=== PATIENT | female | born 1970 | race Caucasian/White ===

== ENCOUNTER → 2016-12-06 | Outpatient (REF) | payer MEDICARE, MEDICAID ==
[~2016-12-06] MED LIST: ACET50TA PO; CIPR500T4; COLA100C2; CYMB60CA3 PO; DARV100T; DILA2TAB; MOTR200T4; TAMS0.4C PO; VYVA30CA5 PO; XANA0.5T PO
== END ==
LOC: M LAB REF 08:28
PROVIDERS: ATTEND Physician Assistant
DX: N32.81 Overactive bladder (principal); Z79.899 Other long term (current) drug therapy

== ENCOUNTER → 2017-01-03 | Outpatient (REF) | payer MEDICARE, MEDICAID | LOC: M LAB REF 16:31 | PROVIDERS: ATTEND Physician Assistant | DX: R30.0 Dysuria (principal) ==

== ENCOUNTER → 2017-03-22 | Outpatient (REF) | payer MEDICARE, MEDICAID ==
[2017-03-22 14:48] LABS: ALBUMIN 4.5 GM/DL (3.2-5.2); ALBUMIN/GLOBULIN RATIO 1.36 (1.00-1.93); ALKALINE PHOSPHATASE 123 U/L (45-117); ALT/SGPT 26 U/L (12-78); ANION GAP 6 MEQ/L (8-16); AST/SGOT 18 U/L (15-37); BILIRUBIN,TOTAL 0.4 MG/DL (0.2-1.0); BLOOD UREA NITROGEN 20 MG/DL (7-18); CALCIUM LEVEL 9.8 MG/DL (8.5-10.1); CARBON DIOXIDE LEVEL 30 MEQ/L (21-32); CHLORIDE LEVEL 106 MEQ/L (98-107); CREATININE FOR GFR 1.14 MG/DL (0.55-1.02); GLOMERULAR FILTRATION RATE 54.4 (>58); GLUCOSE, FASTING 111 MG/DL (70-105); POTASSIUM SERUM 3.9 MEQ/L (3.5-5.1); SODIUM LEVEL 142 MEQ/L (136-145); TOTAL PROTEIN 7.8 GM/DL (6.4-8.2)
[2017-03-27 12:07] LABS: ALBUMIN % 61.8 % (55.8-66.1); GAMMA GLOBULIN % 11.5 % (11.1-18.8)
[2017-03-27 12:09] LABS: ALBUMIN 4.82 GM/DL (3.29-5.55)
[2017-03-28 00:10] LABS: ACETYLCHOLINE RCPTOR BINDING A < 0.03 nmol/L (0.00-0.24); STRIATIONAL ANTIBODIES Negative (Neg:<1:40)
== END ==
LOC: M LABNEURO 13:24
PROVIDERS: ATTEND Psychiatry & Neurology Neurology
DX: R51 Headache (principal); R42 Dizziness and giddiness; H53.8 Other visual disturbances; Z79.899 Other long term (current) drug therapy

== ENCOUNTER → 2017-06-29 | Outpatient (REF) | payer MEDICARE, MEDICAID ==
[2017-06-29 18:45] LABS: ALBUMIN 4.4 GM/DL (3.2-5.2); ALBUMIN/GLOBULIN RATIO 1.47 (1.00-1.93); ALKALINE PHOSPHATASE 98 U/L (45-117); ALT/SGPT 18 U/L (12-78); ANION GAP 5 MEQ/L (8-16); AST/SGOT 16 U/L (15-37); BILIRUBIN,TOTAL 0.5 MG/DL (0.2-1.0); BLOOD UREA NITROGEN 17 MG/DL (7-18); CARBON DIOXIDE LEVEL 28 MEQ/L (21-32); CHLORIDE LEVEL 105 MEQ/L (98-107); CREATININE FOR GFR 1.19 MG/DL (0.55-1.02); GLOMERULAR FILTRATION RATE 51.5 (>58); GLUCOSE, FASTING 105 MG/DL (70-105); SODIUM LEVEL 138 MEQ/L (136-145); TOTAL PROTEIN 7.4 GM/DL (6.4-8.2)
[2017-06-29 18:55] LABS: POTASSIUM SERUM 5.3 MEQ/L (3.5-5.1)
== END ==
LOC: M LABDRAW1 18:06
PROVIDERS: ATTEND Psychiatry & Neurology Neurology
DX: R51 Headache (principal); Z51.81 Encounter for therapeutic drug level monitoring

== ENCOUNTER 2017-12-04 07:28 | Emergency (ER) | payer MEDICARE, MEDICAID ==
[2017-12-04] MEDS: ACETAMINOPHEN 325 MG TAB PO (08:11)
[2017-12-04 08:27] LABS: BASO # 0.1 10^3/uL (0.0-0.2); BASO % 0.4 % (0.0-1.0); EOS # 0.5 10^3/uL (0.0-0.50); EOS % 3.9 % (0.0-3.0); HEMATOCRIT 45.3 % (36.0-47.0); HEMOGLOBIN 15.2 g/dl (12.0-16.0); IMMATURE GRANULOCYTE # 0.1 10^3/uL (0-0); IMMATURE GRANULOCYTE % 0.4 % (0-0); LYMPH # 2.3 10^3/uL (1.5-4.5); LYMPH % 17.6 % (24.0-44.0); MEAN CORPUSCULAR HGB CONC 33.6 g/dl (32.0-36.5); MEAN CORPUSCULAR VOLUME 89.5 fl (80.0-96.0); MONO # 0.7 10^3/uL (0.0-0.8); MONO % 5.2 % (0.0-5.0); NEUTROPHILS # 9.3 10^3/uL (1.8-7.7); NEUTROPHILS % 72.5 % (36.0-66.0); PLATELET COUNT, AUTOMATED 242 10^3/uL (150-450); RED BLOOD COUNT 5.06 10^6/uL (4.00-5.40); RED CELL DISTRIBUTION WIDTH 12.8 % (11.5-14.5); WHITE BLOOD COUNT 12.9 10^3/uL (4.0-10.0)
[2017-12-04 08:46] LABS: CONTROL LINE MONO RF C INT CTR LINE PRESENT; MONO REFLEX EBV COMP NEGATIVE (NEGATIVE)
[2017-12-04 08:53] LABS: ALBUMIN 4.1 GM/DL (3.2-5.2); ALBUMIN/GLOBULIN RATIO 1.28 (1.00-1.93); ALKALINE PHOSPHATASE 104 U/L (45-117); ALT/SGPT 18 U/L (12-78); ANION GAP 7 MEQ/L (8-16); AST/SGOT 15 U/L (7-37); BILIRUBIN,DIRECT 0.1 MG/DL (0.0-0.2); BILIRUBIN,TOTAL 0.4 MG/DL (0.2-1.0); BLOOD UREA NITROGEN 14 MG/DL (7-18); CARBON DIOXIDE LEVEL 25 MEQ/L (21-32); CHLORIDE LEVEL 108 MEQ/L (98-107); CREATININE FOR GFR 1.13 MG/DL (0.55-1.30); GLOMERULAR FILTRATION RATE 54.7 (>58); GLUCOSE, FASTING 99 MG/DL (70-100); POTASSIUM SERUM 4.1 MEQ/L (3.5-5.1); SODIUM LEVEL 140 MEQ/L (136-145); TOTAL PROTEIN 7.3 GM/DL (6.4-8.2)
[2017-12-04 09:01] LABS: INFLUENZA A AMPLIFICATION NEGATIVE (NEGATIVE); INFLUENZA B AMPLIFICATION NEGATIVE (NEGATIVE)
[2017-12-06 00:06] LABS: EBV AB TO NUCLEAR ANTIGEN >600.0 U/mL (0.0-17.9)
[2017-12-06 00:06] LABS: EBV VIRAL CAPSID AG IgM <36.0 U/mL (0.0-35.9)
== END 2017-12-04 09:22 | disposition home or self-care (01) ==
LOC: M ED 07:28
DX: J02.9 Acute pharyngitis, unspecified (principal); B34.9 Viral infection, unspecified; Z87.442 Personal history of urinary calculi; F17.210 Nicotine dependence, cigarettes, uncomplicated
CPT/HCPCS: 71046

== ENCOUNTER → 2017-12-06 | Outpatient (CLI) | payer MEDICARE, MEDICAID ==
[2017-12-06 17:29] LABS: BASO # 0.1 10^3/uL (0.0-0.2); BASO % 0.6 % (0.0-1.0); EOS # 0.4 10^3/uL (0.0-0.50); EOS % 4.2 % (0.0-3.0); HEMATOCRIT 46.7 % (36.0-47.0); HEMOGLOBIN 15.5 g/dl (12.0-16.0); IMMATURE GRANULOCYTE % 0.3 % (0-0); LYMPH # 2.8 10^3/uL (1.5-4.5); LYMPH % 30.4 % (24.0-44.0); MEAN CORPUSCULAR HEMOGLOBIN 29.9 pg (27.0-33.0); MEAN CORPUSCULAR HGB CONC 33.2 g/dl (32.0-36.5); MONO # 0.7 10^3/uL (0.0-0.8); MONO % 8.1 % (0.0-5.0); NEUTROPHILS # 5.1 10^3/uL (1.8-7.7); NEUTROPHILS % 56.4 % (36.0-66.0); PLATELET COUNT, AUTOMATED 253 10^3/uL (150-450); RED BLOOD COUNT 5.19 10^6/uL (4.00-5.40); WHITE BLOOD COUNT 9.1 10^3/uL (4.0-10.0)
== END ==
LOC: M WUC 15:08
DX: J06.9 Acute upper respiratory infection, unspecified (principal); R05 Cough
CPT/HCPCS: 85025

== ENCOUNTER → 2017-12-25 | Outpatient (REF) | payer MEDICARE, MEDICAID | LOC: M LAB REF 16:58 | DX: N39.0 Urinary tract infection, site not specified (principal) | CPT/HCPCS: 87088; 87186 ==

== ENCOUNTER → 2018-04-11 | Outpatient (CLI) | payer MEDICARE, MEDICAID | LOC: M RAD 12:09 | DX: N20.1 Calculus of ureter (principal) | CPT/HCPCS: 76775 ==

== ENCOUNTER → 2018-10-19 | Outpatient (CLI) | payer MEDICARE, MEDICAID ==
--- NOTE | 2018-10-19 15:07 | REP ---
LEFT RIBS: REASON: Left anterior rib pain status post trauma. COMPARISON: Chest, 12/04/2017. FINDINGS: Five views of the ribs show no acute fracture or destructive osseous lesion. The accompanying frontal view of the chest shows no cardiomegaly, infiltrates, effusions or pneumothoraces. IMPRESSION: Negative rib series. The accompanying frontal view of the chest is unchanged from the prior exam. Electronically Signed by Baltazar Narayanan DO 10/19/2018 03:11 P
--- NOTE | 2018-10-19 15:07 | REP ---
UNILATERAL HIPS: FINDINGS: The joint space is symmetric and relatively well maintained. There is no acute fracture or dislocation. Electronically Signed by Baltazar Narayanan DO 10/19/2018 03:12 P
== END ==
LOC: M WUC 14:11
PROVIDERS: ATTEND Physician Assistant
DX: S20.212A Contusion of left front wall of thorax, initial encounter (principal); S70.02XA Contusion of left hip, initial encounter; X58.XXXA Exposure to other specified factors, initial encounter; Y92.9 Unspecified place or not applicable

== ENCOUNTER → 2018-10-31 | Outpatient (CLI) | payer MEDICARE, MEDICAID | LOC: M LAB 08:54 | PROVIDERS: ATTEND Specialist | DX: N39.0 Urinary tract infection, site not specified (principal) ==

== ENCOUNTER → 2018-11-13 | Outpatient (REF) | payer MEDICARE, MEDICAID | LOC: M LAB REF 10:56 | DX: N39.0 Urinary tract infection, site not specified (principal) ==

== ENCOUNTER → 2019-02-21 | Outpatient (REF) | payer MEDICARE, MEDICAID ==
[~2019-02-21] MED LIST changes: -ACET50TA PO; +MAPA500T17 PO
== END ==
LOC: M LAB REF 11:47
PROVIDERS: ATTEND Physician Assistant
DX: J01.90 Acute sinusitis, unspecified (principal); R19.7 Diarrhea, unspecified

== ENCOUNTER 2019-03-05 11:06 | Inpatient (IN) | payer MEDICARE, MEDICAID ==
[~2019-03-05] VITALS: Ht 160 cm; Wt 64.2 kg
[2019-03-05] MEDS ORDERED: OXYB5TAB10 PO (11:17)
[2019-03-05 12:36] LABS: HEMATOCRIT 48.1 % (36.0-47.0); HEMOGLOBIN 16.3 g/dl (12.0-15.5); MEAN CORPUSCULAR HGB CONC 33.9 g/dl (32.0-36.5); MEAN CORPUSCULAR VOLUME 91.6 fl (80.0-96.0); PLATELET COUNT, AUTOMATED 280 10^3/uL (150-450); RED BLOOD COUNT 5.25 10^6/uL (4.00-5.40); WHITE BLOOD COUNT 11.8 10^3/uL (4.0-10.0)
[2019-03-05 13:11] LABS: AMPHETAMINES LEVEL URINE NEGATIVE (NEGATIVE); BARBITURATES URINE NEGATIVE (NEGATIVE); BENZODIAZEPINES URINE NEGATIVE (NEGATIVE); CANNABINOIDS URINE POSITIVE (NEGATIVE); COCAINE METABOLITE URINE NEGATIVE (NEGATIVE); METHADONE URINE NEGATIVE (NEGATIVE); OPIATES URINE NEGATIVE (NEGATIVE); PHENCYCLIDINE URINE NEGATIVE (NEGATIVE)
[2019-03-05 13:12] LABS: ALBUMIN 4.5 GM/DL (3.2-5.2); ALT/SGPT 23 U/L (12-78); BILIRUBIN,DIRECT 0.2 MG/DL (0.0-0.2); BILIRUBIN,TOTAL 0.8 MG/DL (0.2-1.0); BLOOD UREA NITROGEN 18 MG/DL (7-18); CALCIUM LEVEL 9.6 MG/DL (8.5-10.1); CARBON DIOXIDE LEVEL 27 MEQ/L (21-32); CHLORIDE LEVEL 107 MEQ/L (98-107); ETHYL ALCOHOL (ETHANOL) < 0.003 % (0.000-0.010); GLOMERULAR FILTRATION RATE 56.2 (>58); GLUCOSE, FASTING 96 MG/DL (70-100); POTASSIUM SERUM 4.1 MEQ/L (3.5-5.1); SALICYLATE LEVEL 4.9 MG/DL (5.0-30.0); SODIUM LEVEL 139 MEQ/L (136-145); TOTAL PROTEIN 8.1 GM/DL (6.4-8.2)
[2019-03-05 13:14] LABS: ACETAMINOPHEN LEVEL < 2.0 UG/ML (10.0-30.0)
[2019-03-05] MEDS ORDERED: ACETAMINOPHEN TAB 650MG DOSE (2X325MG) PO ONE (13:30)
[2019-03-05] MEDS ORDERED: MAALOX 30 ML SUSP *UDC PO PRN (15:45)
[2019-03-05] MEDS ORDERED: ACETAMINOPHEN TAB 650MG DOSE (2X325MG) PO PRN (15:45)
[2019-03-05] MEDS ORDERED: traZODone 50 MG TAB PO PRN (15:45)
[2019-03-05] MEDS ORDERED: MOM 30ML SUSPENSION UDC PO PRN (15:45)
[2019-03-05 16:26] VITALS: BP 139/103
[2019-03-05] MEDS ORDERED: MULT-40 PO (16:39)
[2019-03-05] MEDS ORDERED: VENTAER INH (16:39)
[2019-03-05] MEDS: hydrOXYzine 50 MG TAB PO PRN (20:43)
[2019-03-05] MEDS ORDERED: QUEtiapine FUMARATE 25 MG TAB PO SCH (21:00)
[2019-03-06] MEDS: hydrOXYzine 50 MG TAB PO PRN ×3 (06:16→20:27)
[2019-03-06 07:59] VITALS: BP 124/61
[2019-03-06 08:29] LABS: HEMATOCRIT 45.8 % (36.0-47.0); HEMOGLOBIN 15.6 g/dl (12.0-15.5); MEAN CORPUSCULAR HEMOGLOBIN 30.9 pg (27.0-33.0); MEAN CORPUSCULAR HGB CONC 34.1 g/dl (32.0-36.5); MEAN CORPUSCULAR VOLUME 90.7 fl (80.0-96.0); PLATELET COUNT, AUTOMATED 277 10^3/uL (150-450); RED BLOOD COUNT 5.05 10^6/uL (4.00-5.40); WHITE BLOOD COUNT 9.8 10^3/uL (4.0-10.0)
[2019-03-06 08:54] LABS: CALCIUM LEVEL 9.5 MG/DL (8.5-10.1); CHOLESTEROL RISK RATIO 4.482 (<5); CREATININE FOR GFR 1.14 MG/DL (0.55-1.30); GLOMERULAR FILTRATION RATE 53.9 (>58); MAGNESIUM LEVEL 2.2 MG/DL (1.8-2.4); POTASSIUM SERUM 4.5 MEQ/L (3.5-5.1); THYROID STIMULATING HORMONE 2.43 uIU/ML (0.358-3.740)
[2019-03-06] MEDS ORDERED: SERTRALINE HCL 50 MG TAB PO SCH (09:00)
[2019-03-06] MEDS: NICOTINE 21MG/24HR 1 EA TRANSDERMAL TD SCH (09:24)
--- NOTE | 2019-03-06 13:40 | HPEPDOC ---
General Date of Admission March 05, 2019 at 15:41 Attending Physician: LD ELI MD Chief Complaint The patient is a 48-year-old female admitted with a reason for visit of Depressive Disorder. Source: Patient, RN/MD Exam Limitations: No limitations Timing/Duration: Unsure Severity: Moderate History of Present Illness Patient is a 48 year old female, past medical history significant for depression, anxiety, vesicourethral reflux, hydronephrosis, pyelonephritis, admitted to the inpatient psychiatric unit on account of worsening depression, anger, suicidal ideation. Patient reports multiple home stressors in the past week, worsening in the last 2 nights prior to admission for which she decided to come to the emergency room. She said she tried to cope with smoking cigarettes, also reports not having any medications to help with psychiatric issues, and also reports her dog passing last week. Hospitalist team was consulted for evaluation and management of any underlying medical comorbidities. On evaluation, she complained of concern for urinary infection due to urethral reflux. She has been followed by a urologist in [place] for management of vesicourethral reflux. She usually needs to void every 2 hours for prevention of reflux and infection. She reports increasing difficulty keeping to the 2 hour regimen, especially at night when she needs to sleep. Otherwise, denies any chills, fever or dysuria Home Medications Scheduled Multivitamin (Multivitamins) 1 Each Tablet, 1 TAB PO DAILY for . , (Reported) Oxybutynin Chloride (Oxybutynin Chloride) 5 Mg Tablet, 10 MG PO DAILY, (Reported) Scheduled PRN Albuterol Sulfate (Ventolin Hfa) 18 Gm Hfa.aer.ad, 2 PUFF INH Q4-6HP PRN for wheezing, (Reported) Allergies Coded Allergies: No Known Allergies (Verified , 09/24/09) Past Medical History Medical History -Vesicourethral reflux -Right hydronephrosis -Right pyelonephritis -Overactive bladder -Nicotine dependence -Depression -Anxiety Surgical History -Urethral stent placement-right -Partial left nephrectomy -Bladder reconstruction -Tubal ligation -Hysterectomy A-FIB/CHADSVASC A-FIB History Current/History of A-Fib/PAF?: No Review of Systems Other systems A 10 point pertinent review of systems is completed and negative except as stated in the history of presenting illness Physical Examination Other physical findings General: NAD. Skin: Warm, dry, intact. Cardiovascular: Regular rate and rhythm, no MRG, no jugular venous distention, no edema. Respiratory:CTAB, no accessory muscle use noted. Abdomen: Bowel sounds +, no tenderness, no distention Musculoskeletal: No joint deformities, Neurologic: CN 2-12 grossly intact, alert and oriented 3 Psychiatric: anxious Vital Signs Vital Signs Date Time Temp Pulse Resp B/P (MAP) Pulse Ox O2 Delivery O2 Flow Rate FiO2 03/06/19 07:59 97.2 99 16 124/61 (82) 03/05/19 16:26 100 03/05/19 15:54 Room Air Laboratory Data Labs 24H Laboratory Tests 2 03/06/19 07:59: Nucleated Red Blood Cells % (auto) 0.0, Anion Gap 6L, Glomerular Filtration Rate 53.9L, Calcium Level 9.5, Magnesium Level 2.2, Triglycerides Level 95, LDL Cholesterol 176H, Total Cholesterol 251H, Non-HDL Cholesterol (LDL + VLDL) 195, Total HDL Cholesterol 56, Cholesterol/HDL Ratio 4.482, Thyroid Stimulating Hormone (TSH) 2.430 CBC/BMP Laboratory Tests 03/06/19 07:59 Red Blood Count 5.05, Mean Corpuscular Volume 90.7, Mean Corpuscular Hemoglobin 30.9, Mean Corpuscular Hemoglobin Concent 34.1, Red Cell Distribution Width 12.7 Assessment/Plan Right vesicourethral reflux disease Overactive bladder Nicotine dependence Anxiety disorder Depression Plan Patient reports she was on oxybutynin 10 mg daily Will restart oxybutynin Has been instructed to follow up with urology as outpatient for evaluation and continued management of vesicourethral reflux Management of other underlying psychiatric issues by primary team Plan / VTE VTE Prophylaxis Ordered?: No VTE Exclusion Pharmacological: At Low Risk for VTE DEVEN KELLY [employer]PORATE SPECIALIST March 06, 2019 13:40
[2019-03-06] MEDS ORDERED: OXYB10TA PO (13:49)
--- NOTE | 2019-03-06 14:36 | MHHPEPDOC ---
General Date Of Admission: March 05, 2019 Legal Status: 9.39 Chief Complaint "I'm depressed and having thoughts of suicide." History of Present Illness HISTORY OF THE PRESENT ILLNESS: Patient is a 48 -year-old , female, with no previous psychiatric history who was sent to ED after seen at [facility] for intake appt for endorsing depression and SI for the past month since she and her adult son got into an argument and he released several emotions he had toward her. Pt reported in the ED that she and her son's relationship is now strained and she feels like an awful mother. She stated in the ED that she had a breakdown the night prior ED visit in which she threw a dining room chair and remote and punched a window. She endorsed insomnia and decreased appetite in the ED and was upset and crying.. Psychiatric Review of Systems Depression (2 or more weeks): depressed mood, insomnia/hypersomnia (insomnia), feelings of excess/guilt (guild), feelings of worthlesness, difficulty concentrating, appetite changes, suicidal thoughts Rolanda (4 or more days of): denies Psychosis: denies PTSD: denies Anxiety: situational anxiety, stressor related anxiety Anxiety/ 6 months or more of: restlessness, keyed up, difficulty concentrating, irritability, sleep disturbance Past Psychiatric History Previous Psychiatric Diagnosis:depression, "anger," PTSD Previous Psychiatric Admissions: denies Suicide Attempts: denies Psychiatric Follow-up: [facility] in past, [facility] yesterday for intake Psychiatric medications: none Past Medical History Medical Problems renal disease 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 Abuse/Trauma:. Current Living Situation: lives alone in [place] Education: high school grad Employment: on disability Social Support: . Legal: denies Marital: , 1 adult son Mental Status Examination General Appearance: well groomed, appears stated age, hospital scubs/clothing Build: average Demeanor: average Eye Contact: average Activity: anxious Behavior: cooperative Speech: clear, spontaneous, normal volume, reg/rate,rhythm,volume Mood: depressed, anxious, irritable Mood "angry" Affect: full, appropriate, congruent, anxious Thought Process: logical/linear, depressed, intact Thought Content (Delusions): none reported, denies SI, HI, AVH Thought Content (Other): none reported, guilty, appropriate, other (worry) Thought Content (Aggressive): none reported Perception (Hallucinations): none reported Perception (Other): none reported Cognition (Impairment of): none reported Cognition(Intelligence Est.): average Oriented: Awake, Alert, Oriented times three Insight: fair Judgment: Fair Psychosis: Denies Diagnoses 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 I got really angry and yesterday was the most angry I've ever been as I was feeling guilty and felt it was time to get some help." States since she had to go on disability due to medical issues s/p total hysterectomy ("I was just angry") she has become isolated, no longer socializing with friends or family which is abnormal for her. 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 Talked of "breakdown" night prior seen in ED of throwing and breaking objects. States over the past month she also had a lot of medical scares like for breast cancer the was negative, had to put dog down last wk due to cancer, has a new bulldog puppy (fiance driving to [place] to sheepskin pickler for pt). Talked about medications as well as possible hormonal imbalance s/p total hysterectomy and recommended to also follow-up with feed preparation operator regarding hormone evaluation and possible need for treatment to improve mood symptoms which she was agreeable about and found very beneficial to be aware of as a possible contributing factor. Recommended starting lexapro for depression, risks/benefits discussed, liver metabolized, and agreeable. Will also provide atarax prn anxiety and trazodone prn insomnia as started on admission and found helpful. Denies SI/HI, hallucinations, delusions. Feels safe here. Initial Treatment Plan 1. Patient was admitted on a 9.39 status. 2. Complete history was obtained. 3. With patients permission, family will be contacted and database will be expanded. 4. Patients medication regimen will be reviewed and changed accordingly. 5. Patient will be provided with protected environment. 6. Patient will be treated with individual, group, and milieu therapies. 7. Patient will receive supportive psych-education. 8. Discharge planning will commence immediately. 9. Outpatient follow-up treatment will be strongly recommended. 10. The initial treatment plan will focus initially on: * Depression. * Risk for suicide. * Substance abuse. 11. lexapro 10mg daily, atarax 25mg q6hr prn anxiety, trazodone 100mg qhs prn insomnia ESTIMATED LENGTH OF STAY: 5-7 DAYS. TIME SPENT COUNSELING AND COORDINATING INITIAL CARE: 60 minutes. Vital Signs Vital Signs Date Time Temp Pulse Resp B/P (MAP) Pulse Ox O2 Delivery O2 Flow Rate FiO2 03/06/19 07:59 97.2 99 16 124/61 (82) 03/05/19 16:26 100 03/05/19 15:54 Room Air Laboratory Data 24H Labs Laboratory Tests 2 03/06/19 07:59: Nucleated Red Blood Cells % (auto) 0.0, Anion Gap 6L, Glomerular Filtration Rate 53.9L, Calcium Level 9.5, Magnesium Level 2.2, Triglycerides Level 95, LDL Cholesterol 176H, Total Cholesterol 251H, Non-HDL Cholesterol (LDL + VLDL) 195, Total HDL Cholesterol 56, Cholesterol/HDL Ratio 4.482, Thyroid Stimulating Hormone (TSH) 2.430 CBC/BMP Laboratory Tests 03/06/19 07:59 Red Blood Count 5.05, Mean Corpuscular Volume 90.7, Mean Corpuscular Hemoglobin 30.9, Mean Corpuscular Hemoglobin Concent 34.1, Red Cell Distribution Width 12.7 Medications Scheduled Multivitamin (Multivitamins) 1 Each Tablet, 1 TAB PO DAILY for . , (Reported) Oxybutynin Chloride (Oxybutynin Chloride) 5 Mg Tablet, 10 MG PO DAILY, (Reported) Scheduled PRN Albuterol Sulfate (Ventolin Hfa) 18 Gm Hfa.aer.ad, 2 PUFF INH Q4-6HP PRN for wheezing, (Reported) Allergies Coded Allergies: No Known Allergies (Verified , 09/24/09) NIKO ABREU DO March 06, 2019 14:36
[2019-03-06] MEDS: oxyBUTYnin *DITROPAN XL* 5 MG TABCR PO SCH (14:42)
[2019-03-06] MEDS ORDERED: hydrOXYzine 25 MG TAB PO PRN (14:45)
[2019-03-06 18:00] VITALS: BP 150/80
[2019-03-06] MEDS: traZODone 100 MG TAB PO PRN (21:26)
[2019-03-07] MEDS: QUEtiapine FUMARATE 25 MG TAB PO PRN (00:31)
[2019-03-07 07:11] VITALS: BP 132/81
[2019-03-07] MEDS: oxyBUTYnin *DITROPAN XL* 5 MG TABCR PO SCH (08:59)
[2019-03-07] MEDS: ESCITALOPRAM OXALATE 10 MG TAB (LEXAPRO) PO SCH (08:59)
[2019-03-07] MEDS: NICOTINE 21MG/24HR 1 EA TRANSDERMAL TD SCH (09:00)
--- NOTE | 2019-03-07 10:39 | MHIPNPDOC ---
[facility] Progress Note Progress Note DATE OF SERVICE: 03/07/19 HISTORY: Patient is a 48 -year-old , female, with no previous psychiatric history who was sent to ED after seen at [facility] for intake appt for endorsing depression and SI for the past month since she and her adult son got into an argument and he released several emotions he had toward her. Pt reported in the ED that she and her son's relationship is now strained and she feels like an awful mother. She stated in the ED that she had a breakdown the night prior ED visit in which she threw a dining room chair and remote and punched a window. She endorsed insomnia and decreased appetite in the ED and was upset and crying. VITAL SIGNS: See below. NEW TEST RESULTS: See below. CURRENT MEDICATIONS: See below. MENTAL STATUS EXAMINATION: General Appearance: well groomed, appears stated age, hospital scrubs/clothing Build: average Demeanor: average Eye Contact: average Activity: less anxious Behavior: cooperative Speech: clear, spontaneous, normal volume, reg/rate,rhythm,volume Mood: depressed, less anxious Mood "better" Affect: full, appropriate, congruent, less anxious Thought Process: logical/linear, depressed, intact Thought Content (Delusions): none reported, denies SI, HI, AVH Thought Content (Other): none reported, guilty, appropriate, other (worry) Thought Content (Aggressive): none reported Perception (Hallucinations): none reported Perception (Other): none reported Cognition (Impairment of): none reported Cognition(Intelligence Est.): average Oriented: Awake, Alert, Oriented times three Insight: fair Judgment: Fair Psychosis: Denies DIAGNOSES: Major Depressive D/O recurrent w/o psychosis R/O post total hysterectomy mood d/o Hx ADHD HX PTSD - treated cannabis use d/o ASSESSMENT:Pt seen and states she's here b/c she feels "better" today with improved anger and anxiety. States she's attending groups and finding them beneficial for her to more understand her emotions and herself. Disappointed she will miss her granddaughter's birthday this wkend but realizes there will be more and she needs to focus on caring for herself before to can appropriately care for others. States she's tolerating her lexapro well and believes it's helpful. Anxiety improved with prn atarax. Slept better last night with increased trazodone. Denies SI/HI, hallucinations, delusions. Feels safe here. MANAGEMENT PLAN: continues plans Medications: lexapro 10mg daily atarax 25mg q6hr prn anxiety trazodone 100mg qhs prn insomnia TIME SPENT: 30 minutes. Vital Signs Vital Signs Date Time Temp Pulse Resp B/P (MAP) Pulse Ox O2 Delivery O2 Flow Rate FiO2 03/07/19 07:11 98.1 79 16 132/81 (98) 03/05/19 16:26 100 03/05/19 15:54 Room Air Current Medications Current Medications Acetaminophen (Tylenol Tab) 650 mg Q6HP PRN PO HEADACHE or DISCOMFORT; Start 03/05/19 at 15:45 Al Hydrox/Mg Hydrox/Simethicone (Mylanta) 30 ml Q4HP PRN PO HEARTBURN/INDIGESTION; Start 03/05/19 at 15:45 Escitalopram Oxalate (Lexapro) 10 mg DAILY PO Last administered on 03/07/19at 08:59; Start 03/07/19 at 09:00 Home Med (Med Rec Complete!) ASDIRECTED XX ; Start 03/05/19 at 16:45; Stop 03/05/19 at 16:45; Status DC Hydroxyzine HCl (Atarax) 25 mg Q6HP PRN PO ANXIETY; Start 03/06/19 at 14:45; Stop 03/06/19 at 14:58; Status DC Hydroxyzine HCl (Atarax) 50 mg Q6HP PRN PO ANXIETY/AGITATION Last administered on 03/06/19at 20:27; Start 03/05/19 at 18:30 Magnesium Hydroxide (Milk Of Magnesia) 30 ml DAILYPRN PRN PO CONSTIPATION; Start 03/05/19 at 15:45 Nicotine (Nicoderm Cq 21mg) 1 patch DAILY TD Last administered on 03/07/19at 09:00; Start 03/06/19 at 09:00 Oxybutynin Chloride (Ditropan Xl) 10 mg DAILY PO Last administered on 03/07/19at 08:59; Start 03/06/19 at 14:00 Quetiapine Fumarate (SEROquel) 25 mg QHS PO Last administered on 03/05/19at 20:30; Start 03/05/19 at 21:00; Stop 03/06/19 at 14:45; Status DC Quetiapine Fumarate (SEROquel) 25 mg QHS PRN PO INSOMNIA Last administered on 03/07/19at 00:31; Start 03/06/19 at 14:45 Sertraline HCl (Zoloft) 50 mg QAM PO Last administered on 03/06/19at 07:52; Start 03/06/19 at 09:00; Stop 03/06/19 at 14:45; Status DC Trazodone HCl (Desyrel) 50 mg QHSP PRN PO INSOMNIA; Start 03/05/19 at 15:45; Status Cancel Trazodone HCl (Desyrel) 100 mg QHSP PRN PO INSOMNIA Last administered on 03/06/19at 21:26; Start 03/06/19 at 14:45 Allergies Coded Allergies: No Known Allergies (Verified , 09/24/09) A-FIB/CHADSVASC A-FIB History Current/History of A-Fib/PAF?: No Current Oral Anticoagulant The: No Treatment Treatment ordered: NONE Reason Anticoagulant not given: Not indicated/[id number] NIKO ABREU DO March 07, 2019 10:39 am
[2019-03-07] MEDS: hydrOXYzine 50 MG TAB PO PRN ×2 (12:20→21:27)
[2019-03-07 18:31] VITALS: BP 122/78
[2019-03-07] MEDS: traZODone 100 MG TAB PO PRN (21:27)
[2019-03-08 06:35] VITALS: BP 108/73
[2019-03-08] MEDS: NICOTINE 21MG/24HR 1 EA TRANSDERMAL TD SCH (08:43)
[2019-03-08] MEDS: oxyBUTYnin *DITROPAN XL* 5 MG TABCR PO SCH (08:43)
[2019-03-08] MEDS: ESCITALOPRAM OXALATE 10 MG TAB (LEXAPRO) PO SCH (08:43)
[2019-03-08] MEDS ORDERED: MAGNESIUM CITRATE 300 ML BTL PO ONE (12:00)
[2019-03-08] MEDS: hydrOXYzine 50 MG TAB PO PRN ×2 (13:28→20:57)
[2019-03-08 18:00] VITALS: BP 111/82
[2019-03-08] MEDS: traZODone 100 MG TAB PO PRN (21:34)
[2019-03-09] MEDS: QUEtiapine FUMARATE 25 MG TAB PO PRN (00:51)
[2019-03-09 06:42] VITALS: BP 113/84
[2019-03-09] MEDS: oxyBUTYnin *DITROPAN XL* 5 MG TABCR PO SCH (08:23)
[2019-03-09] MEDS: ESCITALOPRAM OXALATE 10 MG TAB (LEXAPRO) PO SCH (08:23)
[2019-03-09] MEDS: NICOTINE 21MG/24HR 1 EA TRANSDERMAL TD SCH (08:23)
[2019-03-09] MEDS: hydrOXYzine 50 MG TAB PO PRN ×2 (08:23→20:18)
--- NOTE | 2019-03-09 09:22 | REP ---
KUB ABDOMEN AND PELVIS: Two KUB films of abdomen and pelvis performed in a portable fashion. Bowel gas pattern is normal with no evidence of bowel obstruction. No dilated small bowel loops are seen. There is a phlebolith in the inferior left pelvis a few millimeters in diameter. Multiple surgical clips are again seen in the right pelvis. There are degenerative changes of the spine and hips. Electronically Signed by Tyrel Gao MD 03/09/2019 11:31 A
[2019-03-09 18:00] VITALS: BP 110/74
--- NOTE | 2019-03-09 20:50 | MHIPNPDOC ---
[facility] Progress Note Progress Note DATE OF SERVICE: 03/09/19 HISTORY: Patient is a 48 -year-old , female, with no previous psychiatric history who was sent to ED after seen at [facility] for intake appt for endorsing depression and SI for the past month since she and her adult son got into an argument and he released several emotions he had toward her. Pt reported in the ED that she and her son's relationship is now strained and she feels like an awful mother. She stated in the ED that she had a breakdown the night prior ED visit in which she threw a dining room chair and remote and punched a window. She endorsed insomnia and decreased appetite in the ED and was upset and crying. VITAL SIGNS: See below. NEW TEST RESULTS: See below. CURRENT MEDICATIONS: See below. MENTAL STATUS EXAMINATION: General Appearance: well groomed, appears stated age, hospital scrubs/clothing Build: average Demeanor: average Eye Contact: average Activity: less anxious Behavior: cooperative Speech: clear, spontaneous, normal volume, reg/rate,rhythm,volume Mood: depressed, less anxious Mood "much better" Affect: full, appropriate, congruent, less anxious Thought Process: logical/linear, depressed, intact Thought Content (Delusions): none reported, denies SI, HI, AVH Thought Content (Other): none reported, guilty, appropriate. Goal orientated, she would like to go home to enjoy her new puppy. Thought Content (Aggressive): none reported Perception (Hallucinations): none reported Perception (Other): none reported Cognition (Impairment of): none reported Cognition(Intelligence Est.): average Oriented: Awake, Alert, Oriented times three Insight: fair Judgment: Fair Psychosis: Denies DIAGNOSES: Major Depressive D/O recurrent w/o psychosis R/O post total hysterectomy mood d/o Hx ADHD HX PTSD - treated cannabis use d/o ASSESSMENT: The patient says she feels better, very much improved. she reports feeling calmer regarding her urinary tract problems, she sasys that she knows she has to go to a Specialist in [place], but now she feels better knowing that there are alternatives. She shows me the picture of her new puppy, her BF got it for her and she would like to go home to cuddle with her. she feels she needs her dog. she reports that staff has been very good to her and have made her feel safe at [facility] MANAGEMENT PLAN: continues plans Medications: lexapro 10mg daily atarax 25mg q6hr prn anxiety trazodone 100mg qhs prn insomnia TIME SPENT: 30 minutes. Vital Signs Vital Signs Date Time Temp Pulse Resp B/P (MAP) Pulse Ox O2 Delivery O2 Flow Rate FiO2 03/08/19 18:00 98.0 90 16 111/82 (92) 03/05/19 16:26 100 03/05/19 15:54 Room Air Current Medications Current Medications Acetaminophen (Tylenol Tab) 650 mg Q6HP PRN PO HEADACHE or DISCOMFORT; Start 03/05/19 at 15:45 Al Hydrox/Mg Hydrox/Simethicone (Mylanta) 30 ml Q4HP PRN PO HEARTBURN/INDIGESTION; Start 03/05/19 at 15:45 Escitalopram Oxalate (Lexapro) 10 mg DAILY PO Last administered on 03/08/19 08:43; Start 03/07/19 at 09:00 Home Med (Med Rec Complete!) ASDIRECTED XX ; Start 03/05/19 at 16:45; Stop 03/05/19 at 16:45; Status DC Hydroxyzine HCl (Atarax) 25 mg Q6HP PRN PO ANXIETY; Start 03/06/19 at 14:45; Stop 03/06/19 at 14:58; Status DC Hydroxyzine HCl (Atarax) 50 mg Q6HP PRN PO ANXIETY/AGITATION Last administered on 03/08/19at 20:57; Start 03/05/19 at 18:30 Magnesium Hydroxide (Milk Of Magnesia) 30 ml DAILYPRN PRN PO CONSTIPATION Last administered on 03/07/19at 16:05; Start 03/05/19 at 15:45 Nicotine (Nicoderm Cq 21mg) 1 patch DAILY TD Last administered on 03/08/19at 08:43; Start 03/06/19 at 09:00 Oxybutynin Chloride (Ditropan Xl) 10 mg DAILY PO Last administered on 03/08/19 08:43; Start 03/06/19 at 14:00 Quetiapine Fumarate (SEROquel) 25 mg QHS PO Last administered on 03/05/19at 20:30; Start 03/05/19 at 21:00; Stop 03/06/19 at 14:45; Status DC Quetiapine Fumarate (SEROquel) 25 mg QHS PRN PO INSOMNIA Last administered on 03/07/19at 00:31; Start 03/06/19 at 14:45 Sertraline HCl (Zoloft) 50 mg QAM PO Last administered on 03/06/19at 07:52; Start 03/06/19 at 09:00; Stop 03/06/19 at 14:45; Status DC Trazodone HCl (Desyrel) 50 mg QHSP PRN PO INSOMNIA; Start 03/05/19 at 15:45; Status Cancel Trazodone HCl (Desyrel) 100 mg QHSP PRN PO INSOMNIA Last administered on 03/08/19at 21:34; Start 03/06/19 at 14:45 Allergies Coded Allergies: No Known Allergies (Verified , 09/24/09) BELLA GUO MD March 08, 2019 22:46
[2019-03-09] MEDS: traZODone 100 MG TAB PO PRN (21:23)
[2019-03-10 06:40] VITALS: BP 126/68
[2019-03-10] MEDS: ESCITALOPRAM OXALATE 10 MG TAB (LEXAPRO) PO SCH (08:52)
[2019-03-10] MEDS: NICOTINE 21MG/24HR 1 EA TRANSDERMAL TD SCH (08:52)
[2019-03-10] MEDS: oxyBUTYnin *DITROPAN XL* 5 MG TABCR PO SCH (08:52)
--- NOTE | 2019-03-10 11:55 | MHIPNPDOC ---
[facility] Progress Note Progress Note DATE OF SERVICE: 03/10/19 HISTORY: Patient is a 48 -year-old , female, with no previous psychiatric history who was sent to ED after seen at [facility] for intake appt for endorsing depression and SI for the past month since she and her adult son got into an argument and he released several emotions he had toward her. Pt reported in the ED that she and her son's relationship is now strained and she feels like an awful mother. She stated in the ED that she had a breakdown the night prior ED visit in which she threw a dining room chair and remote and punched a window. She endorsed insomnia and decreased appetite in the ED and was upset and crying. VITAL SIGNS: See below. NEW TEST RESULTS: See below. CURRENT MEDICATIONS: See below. MENTAL STATUS EXAMINATION: General Appearance: well groomed, appears stated age, hospital scrubs/clothing Build: average Demeanor: average Eye Contact: average Activity: less anxious Behavior: cooperative Speech: clear, spontaneous, normal volume, reg/rate,rhythm,volume Mood: less depressed, less anxious Mood "alright" Affect: full, appropriate, congruent, less anxious Thought Process: logical/linear, depressed, intact Thought Content (Delusions): none reported, denies SI, HI, AVH Thought Content (Other): none reported, guilty, appropriate, other (worry) Thought Content (Aggressive): none reported Perception (Hallucinations): none reported Perception (Other): none reported Cognition (Impairment of): none reported Cognition(Intelligence Est.): average Oriented: Awake, Alert, Oriented times three Insight: fair Judgment: Fair Psychosis: Denies DIAGNOSES: Major Depressive D/O recurrent w/o psychosis R/O post total hysterectomy mood d/o Hx ADHD HX PTSD - treated cannabis use d/o ASSESSMENT:Pt seen and states she's feeling better with improved anxiety and mood. Continues to have periods of anxiety secondary worrisome thoughts as she states she tries to be a perfectas at everything. Gave her a coping skill of "Bs are for Balance" as a way of being ok with just the what she can do to have a more balanced healthy life in all areas (mood, sleep, work, home, relationships, etc). Stated she likes that and will use it. States she's attending groups and finding them beneficial, learning coping skills. States she's tolerating her lexapro well and believes it's helpful. Anxiety improved with prn atarax. Slept well last night. Denies SI/HI, hallucinations, delusions. Future and goal oriented. Feels safe here. MANAGEMENT PLAN: continues plans Medications: lexapro 10mg daily atarax 25mg q6hr prn anxiety trazodone 100mg qhs prn insomnia TIME SPENT: 30 minutes. Vital Signs Vital Signs Date Time Temp Pulse Resp B/P (MAP) Pulse Ox O2 Delivery O2 Flow Rate FiO2 03/10/19 06:40 98.7 89 14 126/68 (87) 03/05/19 16:26 100 03/05/19 15:54 Room Air Current Medications Current Medications Acetaminophen (Tylenol Tab) 650 mg Q6HP PRN PO HEADACHE or DISCOMFORT; Start 03/05/19 at 15:45 Al Hydrox/Mg Hydrox/Simethicone (Mylanta) 30 ml Q4HP PRN PO HEARTBURN/INDIGESTION; Start 03/05/19 at 15:45 Escitalopram Oxalate (Lexapro) 10 mg DAILY PO Last administered on 03/10/19 08:52; Start 03/07/19 at 09:00 Home Med (Med Rec Complete!) ASDIRECTED XX ; Start 03/05/19 at 16:45; Stop 03/05/19 at 16:45; Status DC Hydroxyzine HCl (Atarax) 25 mg Q6HP PRN PO ANXIETY; Start 03/06/19 at 14:45; Stop 03/06/19 at 14:58; Status DC Hydroxyzine HCl (Atarax) 50 mg Q6HP PRN PO ANXIETY/AGITATION Last administered on 03/09/19at 20:18; Start 03/05/19 at 18:30 Magnesium Hydroxide (Milk Of Magnesia) 30 ml DAILYPRN PRN PO CONSTIPATION Last administered on 03/07/19at 16:05; Start 03/05/19 at 15:45 Nicotine (Nicoderm Cq 21mg) 1 patch DAILY TD Last administered on 03/10/19at 08:52; Start 03/06/19 at 09:00 Oxybutynin Chloride (Ditropan Xl) 10 mg DAILY PO Last administered on 03/10/19at 08:52; Start 03/06/19 at 14:00 Quetiapine Fumarate (SEROquel) 25 mg QHS PO Last administered on 03/05/19at 20:30; Start 03/05/19 at 21:00; Stop 03/06/19 at 14:45; Status DC Quetiapine Fumarate (SEROquel) 25 mg QHS PRN PO INSOMNIA Last administered on 03/09/19at 00:51; Start 03/06/19 at 14:45 Sertraline HCl (Zoloft) 50 mg QAM PO Last administered on 03/06/19at 07:52; Start 03/06/19 at 09:00; Stop 03/06/19 at 14:45; Status DC Trazodone HCl (Desyrel) 50 mg QHSP PRN PO INSOMNIA; Start 03/05/19 at 15:45; Status Cancel Trazodone HCl (Desyrel) 100 mg QHSP PRN PO INSOMNIA Last administered on 03/09/19at 21:23; Start 03/06/19 at 14:45 Allergies Coded Allergies: No Known Allergies (Verified , 09/24/09) A-FIB/CHADSVASC A-FIB History Current/History of A-Fib/PAF?: No Current Oral Anticoagulant The: No Treatment Treatment ordered: NONE Reason Anticoagulant not given: Not indicated/[id number] NIKO ABREU DO March 10, 2019 11:55 am
[2019-03-10] MEDS: hydrOXYzine 50 MG TAB PO PRN ×2 (13:25→20:34)
[2019-03-10 18:23] VITALS: BP 113/69
[2019-03-10] MEDS: traZODone 100 MG TAB PO PRN (21:28)
[2019-03-11 06:41] VITALS: BP 115/63
[2019-03-11] MEDS: oxyBUTYnin *DITROPAN XL* 5 MG TABCR PO SCH (08:31)
[2019-03-11] MEDS: ESCITALOPRAM OXALATE 10 MG TAB (LEXAPRO) PO SCH (08:31)
[2019-03-11] MEDS: NICOTINE 21MG/24HR 1 EA TRANSDERMAL TD SCH (08:33)
[2019-03-11] MEDS ORDERED: QUET1TAB7 PO (09:11)
[2019-03-11] MEDS ORDERED: ESCI10TA2 PO (09:11)
[2019-03-11] MEDS ORDERED: HYDRO50TAB PO (09:11)
[2019-03-11] MEDS ORDERED: TRAZ10TA PO (09:11)
--- NOTE | 2019-03-11 09:21 | MHDSPDOC ---
[facility] Discharge Summary Discharge Summary DATE OF ADMISSION: March 05, 2019 at 3:41 pm DATE OF DISCHARGE: March 11, 2019 DISCHARGE DIAGNOSES: Major Depressive D/O recurrent w/o psychosis R/O post total hysterectomy mood d/o Hx ADHD HX PTSD - treated cannabis use d/o REASON FOR ADMISSION: Patient is a 48 -year-old , female, with no previous psychiatric history who was sent to ED after seen at [facility] for intake appt for endorsing depression and SI for the past month since she and her adult son got into an argument and he released several emotions he had toward her. Pt reported in the ED that she and her son's relationship is now strained and she feels like an awful mother. She stated in the ED that she had a breakdown the night prior ED visit in which she threw a dining room chair and remote and punched a window. She endorsed insomnia and decreased appetite in the ED and was upset and crying. CONSULTANTS INVOLVED: none TREATMENT AND PROGRESS ON THE UNIT : Pt was admitted to [facility], seen for psychiatric assessment and started on lexapo 10mg daily for mood and anxiety. Also recommended pt follow-up with her OBGYN and [employer] outpatient as her medical history of total hysterectomy and renal problems could also be affecting her mood do to reproductive and endogenous hormone imbalances. She was provided vistaril 50mg q6hr prn anxiety and trazodone 100mg qhs prn insomnia. Pt found her medications beneficial and tolerated them well. She attended groups daily during her stay. Her symptoms improved with treatment. On day of discharge she denied depression, anxiety, insomnia, SI/HI, hallucinations, delusions. She was discharged home with follow-up at the [facility], OBGYN, and [facility] [employer] [employer] outpatient. . She felt safe for discharge. DISCHARGE ASSESSMENT: Pt seen and states she's feels "good" with greatly impr vipul anxiety and mood. Endorses greatly improved worrisome thoughts. States her meds and beneficial and she's tolerating them well. States she's attending groups and finding them beneficial, learning coping skills. She is bright and social in the milieu. Slept well last night. Denies depression, anxiety, insomnia, SI/HI, hallucinations, delusions. Future and goal oriented and looking forward to going home today as she has a new puppy she's excited to see for the first time. Feels safe to be discharged home. MENTAL STATUS EXAMINATION ON DISCHARGE: General Appearance: well groomed, appears stated age, own clothing Build: average Demeanor: average Eye Contact: average Activity: average, calm Behavior: cooperative Speech: clear, spontaneous, normal volume, reg/rate,rhythm,volume Mood: euthymic, full, bright Mood "good" Affect: full, appropriate, bright Thought Process: logical/linear, intact Thought Content (Delusions): none reported, denies SI, HI, AVH Thought Content (Other): none reported Thought Content (Aggressive): none reported Perception (Hallucinations): none reported Perception (Other): none reported Cognition (Impairment of): none reported Cognition(Intelligence Est.): average Oriented: Awake, Alert, Oriented times three Insight: good Judgment: good Psychosis: Denies MEDICATIONS ON DISCHARGE: lexapro 10mg daily atarax 25mg q6hr prn anxiety trazodone 100mg qhs prn insomnia PLAN/FOLLOWUP ARRANGEMENTS: D/c home with follow-up at [facility], OBGYN, and [facility] outpatient. The amount of time spent in the coordination of care for this patient was approximately 30 minutes. Vital Signs/I&Os Vital Signs Date Time Temp Pulse Resp B/P (MAP) Pulse Ox O2 Delivery O2 Flow Rate FiO2 03/11/19 06:41 98.0 75 14 115/63 (80) 03/05/19 16:26 100 03/05/19 15:54 Room Air Medications Scheduled Escitalopram Oxalate (Escitalopram Oxalate) 10 Mg Tablet, 10 MG PO DAILY for mood, #10 Multivitamin (Multivitamins) 1 Each Tablet, 1 TAB PO DAILY for . , (Reported) Oxybutynin Chloride (Oxybutynin Chloride ER) 10 Mg Tab.er.24, 10 MG PO DAILY for 30 Days, #30 (Reported) Scheduled PRN Albuterol Sulfate (Ventolin Hfa) 18 Gm Hfa.aer.ad, 2 PUFF INH Q4-6HP PRN for wheezing, (Reported) Hydroxyzine HCl (Hydroxyzine HCl) 50 Mg Tablet, 50 MG PO Q6HP PRN for ANXIETY/AGITATION, #30 Quetiapine Fumarate (Quetiapine Fumarate) 25 Mg Tablet, 25 MG PO QHS PRN for bipolar, #10 Trazodone HCl (Trazodone HCl) 100 Mg Tablet, 100 MG PO QHSP PRN for INSOMNIA, #10 Allergies Coded Allergies: No Known Allergies (Verified , 09/24/09) NIKO ABREU DO March 11, 2019 9:21 am
[2019-03-11] MEDS ORDERED: NICO1DIS11 TOP (10:36)
== END 2019-03-11 09:50 | disposition home or self-care (01) | DRG 885 ==
LOC: M ED 11:06 → M ED INP 15:41 → M PSY 16:00
PROVIDERS: ADMIT Psychiatry & Neurology Psychiatry; ATTEND Psychiatry & Neurology Psychiatry
DX: F33.9 Major depressive disorder, recurrent, unspecified (principal); R45.851 Suicidal ideations; F12.90 Cannabis use, unspecified, uncomplicated; F43.10 Post-traumatic stress disorder, unspecified; F90.9 Attention-deficit hyperactivity disorder, unspecified type; Z79.899 Other long term (current) drug therapy; F17.200 Nicotine dependence, unspecified, uncomplicated; F41.9 Anxiety disorder, unspecified; N13.70 Vesicoureteral-reflux, unspecified

== ENCOUNTER → 2019-06-02 | Outpatient (REF) | payer MEDICARE, MEDICAID ==
[~2019-06-02] MED LIST changes: +ESCI10TA2 PO; +HYDRO50TAB PO; +MULT-40 PO; +NICO1DIS11 TOP; +OXYB10TA PO; +OXYB5TAB10 PO; +QUET1TAB7 PO; +TRAZ10TA PO; +VENTAER INH
== END ==
LOC: M LAB REF 15:14
PROVIDERS: ATTEND Physician Assistant
DX: N39.0 Urinary tract infection, site not specified (principal)

== ENCOUNTER → 2019-07-15 | Outpatient (CLI) | payer MEDICARE, MEDICAID ==
[~2019-07-15] MED LIST changes: +HYDR1TAB33 PO; -HYDRO50TAB PO; -OXYB10TA PO; +OXYB10TA2 PO
--- NOTE | 2019-07-15 09:11 | REP ---
RENAL ULTRASOUND: Real-time sonographic evaluation of kidneys performed. Right kidney is normal in size and echotexture 11.5 x 4.5 x 3.9 cm. Left kidney again demonstrates evidence of prior partial nephrectomy with measurements 6.4 x 4.0 x 5.4 cm. There is no hydronephrosis bilaterally. Cyst in the upper right kidney measures 1.6 x 1.2 x 1.1 cm. A few tiny echogenic foci in the right kidney could represent tiny calcifications. Study is otherwise unremarkable. IMPRESSION: Small size of left kidney due to prior partial nephrectomy. No hydronephrosis bilaterally. Few tiny echogenic foci right kidney, cannot exclude tiny renal calculi. Electronically Signed by Tyrel Gao MD 07/16/2019 10:47 A
== END ==
LOC: M RAD 07:09
PROVIDERS: ATTEND Specialist
DX: N20.1 Calculus of ureter (principal)

== ENCOUNTER → 2019-10-21 | Outpatient (REF) | payer MEDICARE, MEDICAID | LOC: M LAB REF 16:39 | PROVIDERS: ATTEND Nurse Practitioner Family | DX: R30.0 Dysuria (principal) ==

== ENCOUNTER → 2019-12-04 | Outpatient (CLI) | payer MEDICARE, MEDICAID ==
[~2019-12-04] MED LIST changes: -OXYB10TA2 PO; +OXYB10TA23 PO; -TRAZ10TA PO; +TRAZ1TAB12 PO
--- NOTE | 2019-12-04 10:06 | REP ---
PA and lateral chest: Comparison is 12/04/2017. The lung barry are clear. The cardiac size is normal. The jaqueline, mediastinum, and skeletal structures are unremarkable. Impression: Negative PA and lateral chest. There is no interval change. Electronically Signed by Tyrel Vasquez MD 12/04/2019 09:58 A
[2019-12-04 13:33] LABS: BASO # 0.1 10^3/uL (0.0-0.2); BASO % 0.6 % (0.0-1.0); EOS # 0.1 10^3/uL (0.0-0.5); EOS % 1.2 % (0.0-3.0); HEMATOCRIT 45.1 % (36.0-47.0); HEMOGLOBIN 14.6 g/dl (12.0-15.5); LYMPH # 3.4 10^3/uL (1.5-5.0); LYMPH % 33.5 % (24.0-44.0); MEAN CORPUSCULAR HEMOGLOBIN 30.2 pg (27.0-33.0); MEAN CORPUSCULAR HGB CONC 32.4 g/dl (32.0-36.5); MEAN CORPUSCULAR VOLUME 93.4 fl (80.0-96.0); MONO # 0.5 10^3/uL (0.0-0.8); MONO % 5.2 % (0.0-5.0); NEUTROPHILS % 59.2 % (36.0-66.0); PLATELET COUNT, AUTOMATED 245 10^3/uL (150-450); RED BLOOD COUNT 4.83 10^6/uL (4.00-5.40); WHITE BLOOD COUNT 10.1 10^3/uL (4.0-10.0)
[2019-12-04 13:51] LABS: ALBUMIN 4.2 GM/DL (3.2-5.2); ALT/SGPT 19 U/L (12-78); BILIRUBIN,TOTAL 0.5 MG/DL (0.2-1.0); BLOOD UREA NITROGEN 20 MG/DL (7-18); C REACTIVE PROTEIN QUANTITATIV < 0.30 MG/DL (0.00-0.30); CALCIUM LEVEL 9.2 MG/DL (8.5-10.1); CARBON DIOXIDE LEVEL 26 MEQ/L (21-32); CHLORIDE LEVEL 106 MEQ/L (98-107); CREATININE FOR GFR 1.17 MG/DL (0.55-1.30); GLOMERULAR FILTRATION RATE 52.1 (>51); GLUCOSE, FASTING 100 MG/DL (70-100); POTASSIUM SERUM 5.1 MEQ/L (3.5-5.1); SODIUM LEVEL 137 MEQ/L (136-145); TOTAL PROTEIN 6.9 GM/DL (6.4-8.2)
[2019-12-04 14:15] LABS: ERYTHROCYTE SEDIMENTATION RATE 2 mm/hr (0-30)
== END ==
LOC: M WUC 09:12
PROVIDERS: ATTEND Nurse Practitioner Family
DX: R63.4 Abnormal weight loss (principal)

== ENCOUNTER → 2020-01-06 | Outpatient (CLI) | payer MEDICARE, MEDICAID ==
[~2020-01-06] MED LIST changes: +ISOVUE-370 76% 100ML VIAL (Q9967) As Ordered ONE
--- NOTE | 2020-01-06 09:14 | REPVR ---
PROCEDURE INFORMATION: Exam: CT Chest With Contrast Exam date and time: 01/06/2020 8:37 AM Age: 49 years old Clinical indication: Chest pain; Additional info: Chronic bronchitis, chest pain TECHNIQUE: Imaging protocol: Computed tomography of the chest with intravenous contrast. 3D rendering: MIP and/or 3D reconstructed images were created by the technologist. Radiation optimization: All CT scans at this facility use at least one of these dose optimization techniques: automated exposure control; mA and/or kV adjustment per patient size (includes targeted exams where dose is matched to clinical indication); or iterative reconstruction. Contrast material: ISOVUE 370; Contrast volume: 75 ml; Contrast route: IV; COMPARISON: CR CHEST 2 VIEW 12/04/2019 9:26 AM FINDINGS: Lungs: Centrilobular emphysema. Bilateral dependent atelectasis. Pleural space: Unremarkable. No pneumothorax. No pleural effusion. Heart: Atherosclerotic disease of the coronary arteries. Aorta: Atherosclerotic disease of the thoracoabdominal aorta Lymph nodes: Unremarkable. No enlarged lymph nodes. Liver: Simple 1.2 cm subcapsular left hepatic lobe cyst. Focal fat in the left hepatic lobe along the falciform ligament fissure. Kidneys and ureters: Bilateral renal cortical scarring. Bones/joints: Multilevel degenerative disc disease of the thoracic spine. Soft tissues: Unremarkable. IMPRESSION: No acute findings. Electronically signed by: Lb Fuchs On 01/06/2020 09:14:38 AM
== END ==
LOC: M RAD 07:51
PROVIDERS: ATTEND Physician Assistant Medical
DX: R07.9 Chest pain, unspecified (principal); J43.2 Centrilobular emphysema; J98.11 Atelectasis; I70.0 Atherosclerosis of aorta; I25.10 Atherosclerotic heart disease of native coronary artery without angina pectoris; K76.89 Other specified diseases of liver; M51.34 Other intervertebral disc degeneration, thoracic region
CPT/HCPCS: 71260; Q9967

== ENCOUNTER → 2020-03-17 | Outpatient (REF) | payer MEDICARE, MEDICAID ==
[~2020-03-17] MED LIST changes: -ISOVUE-370 76% 100ML VIAL (Q9967) As Ordered ONE
== END ==
LOC: M WUC 15:47
PROVIDERS: ATTEND Physician Assistant
DX: R05 Cough (principal); R06.02 Shortness of breath; Z11.59 Encounter for screening for other viral diseases

== ENCOUNTER → 2020-05-26 | Outpatient (CLI) | payer MEDICARE, MEDICAID ==
--- NOTE | 2020-05-26 11:31 | REP ---
Clinical: Bilateral foot pain. Technique: AP, lateral, bilateral oblique views of the right and left foot. Findings: Left foot demonstrates generalized age-related changes without evidence for significant arthritic changes. No evidence for acute fracture or dislocation. Lateral view demonstrates small calcaneal heal spur. Right foot demonstrates generalized age-related changes without evidence for significant arthritic changes. No evidence for acute fracture or dislocation. Lateral view demonstrates small calcaneal heal spur. Impression: Essentially symmetric age-related changes noted bilaterally. Electronically Signed by Gwyn Mccray MD 05/26/2020 11:23 A
== END ==
LOC: M WUC 10:40
PROVIDERS: ATTEND Physician Assistant
DX: M79.671 Pain in right foot (principal); M79.672 Pain in left foot

== ENCOUNTER → 2020-06-29 | Outpatient (REF) | payer MEDICARE, MEDICAID ==
[2020-07-05 11:07] LABS: A1A FOR PHENOTYPE 150 mg/dL (101-187)
== END ==
LOC: M LAB REF 11:02
PROVIDERS: ATTEND Physician Assistant
DX: J43.1 Panlobular emphysema (principal)

== ENCOUNTER → 2021-01-14 | Outpatient (CLI) | payer MEDICARE, MEDICAID ==
[~2021-01-14] MED LIST changes: +ESCI10TA16 PO; -ESCI10TA2 PO; -QUET1TAB7 PO; +QUET25TA3 PO
--- NOTE | 2021-01-14 13:29 | REP ---
INDICATION: ABNORMAL RADIOLOGIC FINDINGS ON DX IMAGING OF KIDNEY. COMPARISON: 07/15/2019. TECHNIQUE: Real-time sonographic evaluation of the kidneys is performed. FINDINGS: Renal cortical echogenicity pattern is normal bilaterally and contours are smooth. There is no hydronephrosis bilaterally. There has been a prior partial left nephrectomy. A simple cyst in the mid right kidney measures 1.7 cm. The right kidney measures 11.6 x 4.7 x 4.2 cm. Left renal dimensions are 6.5 x 4.5 x 6.2 cm. IMPRESSION: Stable appearance of the kidneys compared to the prior study. No hydronephrosis. <Electronically signed by Tyrel Gao > 01/14/21 [id number]
--- NOTE | 2021-01-14 13:31 | REP ---
INDICATION: ABNORMAL RADIOLOGIC FINDINGS ON DX IMAGING OF KIDNEY. COMPARISON: 07/15/2019, 09/20/2015. TECHNIQUE: Real-time sonographic evaluation of urinary bladder performed. FINDINGS: Bladder measures 5.9 x 5.1 x 2.4 cm. Total volume 47 cc. Patient stated that her bladder felt full. No gross mass or calculus is seen. Ureteral jets could not be seen in the urinary bladder with Doppler color evaluation. Postvoid residual is 10 cc. This is 20% of the regional volume. IMPRESSION: Suboptimal distention of the bladder despite the patient stating that her bladder felt full. No gross abnormalities. <Electronically signed by Tyrel Gao > 01/14/21 [id number]
== END ==
LOC: M RAD 12:28
DX: R93.429 Abnormal radiologic findings on diagnostic imaging of unspecified kidney (principal); Z90.5 Acquired absence of kidney; N28.1 Cyst of kidney, acquired

== ENCOUNTER → 2021-02-23 | Outpatient (CLI) | payer MEDICARE, MEDICAID ==
[~2021-02-23] MED LIST changes: +FUROSEMIDE 20MG/2ML VIAL (J1940) As Ordered ONE
--- NOTE | 2021-02-23 09:39 | REP ---
INDICATION: CROSSING VESSEL AND STRICTURE OF URETER W/O HYDRON. COMPARISON: Comparison study April 17, 2016.. TECHNIQUE: The GFR portion of the study study was performed by the intravenous injection of 3.3 mCi of technetium 99 M DTPA. Renal regions of interest are drawn and differential function time activity curve analysis was performed. Posterior flow study is acquired. 8.8 mCi of technetium 99 M Mag 3 was administered and and sequential post injection flow and excretory phase images are acquired posteriorly. Renal cortical regions of interest are drawn and time activity curves are plotted for renal function analysis. 20 mg of intravenous Lasix is administered and post Lasix washout study is acquired. FINDINGS: Posterior flow images for the radiotracer doses both show symmetric renal bed perfusion. The calculated GFR for the left kidney is 22.7 mL per minute and that for the right 53.5 mL/minute. Total GFR normalized patient body surface area is 79 mL per minute. Time to peak activity is 3.5 minutes on the left and 5.7 minutes on the right. Differential function analysis with Mag 3 dose is 45% left and 55% right which is normal. Time to peak activity is 3.0 minutes on the left which is normal and 7.0 minutes on the right which is delayed. Time to half max activity is 11.2 minutes on the left which is normal and greater than 30 minutes on the right. The renal excretion curve on the right is a little more flat than the right renal excretion curve was in 2016. Excretory phase images demonstrate moderate right-sided hydronephrosis. This is unchanged. Post Lasix imaging demonstrates fairly brisk washout of the right renal collecting system with time to half Lasix activity on the right 7.4 minutes, previously 8.2 minutes. IMPRESSION: Moderate hydronephrosis on the right with good washout post Lasix. Renal excretion curve on the right is a little more flat than it was in 2016. Otherwise unchanged. <Electronically signed by Silvio Velasco > 02/23/21 [id number]
== END ==
LOC: M RAD 07:22
PROVIDERS: ATTEND Specialist
DX: N13.30 Unspecified hydronephrosis (principal)
CPT/HCPCS: 78708; A9539; A9562; J1940

== ENCOUNTER → 2021-03-25 | Outpatient (CLI) | payer MEDICARE, MEDICAID ==
[~2021-03-25] MED LIST changes: -FUROSEMIDE 20MG/2ML VIAL (J1940) As Ordered ONE
--- NOTE | 2021-03-25 11:54 | REP ---
INDICATION: CLAUDICATION COMPARISON: None. TECHNIQUE: Bilateral lower extremity arterial Doppler FINDINGS: All numeric values represent peak systolic velocities in cm/sec. On the right: The ankle brachial index is 1.0 DISTRICT SALES REPRESENTATIVE: 94 triphasic Profunda: 54 triphasic SFAproximal: 66 triphasic SFA Mid: 89 triphasic SFA distal: 83 triphasic Popliteal: 41 triphasic CHRISTY proximal: 57 triphasic Tibioperoneal trunk: 31 triphasic PICKLE WATER PUMP OPERATOR proximal: 46 triphasic PICKLE WATER PUMP OPERATOR distal: 40 biphasic CHRISTY distal: 38 biphasic On the left: The ankle brachial index is 1.0 DISTRICT SALES REPRESENTATIVE: 95 triphasic Profunda: 77 triphasic SFA proximal: 71 triphasic SFA Mid: 92 triphasic SFA distal: 93 triphasic Popliteal: 48 triphasic CHRISTY proximal: 39 triphasic Tibioperoneal trunk: 36 triphasic PICKLE WATER PUMP OPERATOR proximal: 72 triphasic PICKLE WATER PUMP OPERATOR distal: 39 biphasic CHRISTY distal: 33 biphasic Minimal plaque and calcifications were seen bilaterally. No significant stenosis was seen on either side. IMPRESSION: As above <Electronically signed by Baltazar Narayanan > 03/25/21 [id number]
== END ==
LOC: M RAD 10:07
PROVIDERS: ATTEND Internal Medicine Cardiovascular Disease
DX: I73.9 Peripheral vascular disease, unspecified (principal)

== ENCOUNTER → 2021-07-26 | Outpatient (CLI) | payer MEDICARE, MEDICAID ==
[~2021-07-26] MED LIST changes: +QUET1TAB17 PO; -QUET25TA3 PO
--- NOTE | 2021-07-26 10:18 | REP ---
INDICATION: PERSONAL HX NICOTINE DEPENDENCE. COMPARISON: 01/06/2020 the only prior a standard chest CT after the administration of intravenous contrast TECHNIQUE: Axial noncontrast images from the thoracic inlet to the upper abdomen using low-dose lung screening technique (LDCT). As per the protocol only lung window images were sent to the read station for interpretation. FINDINGS: There are emphysematous changes noted status quo. No new abnormal nodules, masses, or opacities have developed. Grossly, the mediastinum and pulmonary jaqueline are unchanged. Grossly, the imaged upper abdomen and imaged osseous structures are unchanged. IMPRESSION: No significant change from the prior exam. Lung rads category 1 low-dose screening CT of the lungs <Electronically signed by Baltazar Narayanan > 07/26/21 [id number]
== END ==
LOC: M RAD 08:35
PROVIDERS: ATTEND Physician Assistant
DX: Z12.2 Encounter for screening for malignant neoplasm of respiratory organs (principal); Z87.891 Personal history of nicotine dependence; J43.9 Emphysema, unspecified

== ENCOUNTER → 2021-08-01 | Outpatient (REF) | payer MEDICARE, MEDICAID | LOC: M LAB REF 11:12 | PROVIDERS: ATTEND Physician Assistant | DX: R05 Cough (principal) ==

== ENCOUNTER → 2021-09-12 | Outpatient (CLI) | payer MEDICARE, MEDICAID ==
[2021-09-12 10:21] LABS: BASO # 0.1 10^3/uL (0.0-0.2); BASO % 0.4 % (0.0-1.0); EOS # 0.2 10^3/uL (0.0-0.5); EOS % 0.8 % (0.0-3.0); HEMATOCRIT 45.6 % (36.0-47.0); LYMPH # 3.2 10^3/uL (1.5-5.0); LYMPH % 17.7 % (24.0-44.0); MEAN CORPUSCULAR HEMOGLOBIN 30.4 pg (27.0-33.0); MEAN CORPUSCULAR HGB CONC 32.9 g/dl (32.0-36.5); MEAN CORPUSCULAR VOLUME 92.3 fl (80.0-96.0); MONO # 1.2 10^3/uL (0.0-0.8); MONO % 6.4 % (2.0-8.0); NEUTROPHILS # 13.2 10^3/uL (1.5-8.5); PLATELET COUNT, AUTOMATED 316 10^3/uL (150-450); RED BLOOD COUNT 4.94 10^6/uL (4.00-5.40); WHITE BLOOD COUNT 17.9 10^3/uL (4.0-10.0)
[2021-09-12 10:43] LABS: BLOOD UREA NITROGEN 17 MG/DL (7-18); GLUCOSE, FASTING 101 MG/DL (70-100)
[2021-09-12 10:44] LABS: CALCIUM LEVEL 9.7 MG/DL (8.5-10.1); CARBON DIOXIDE LEVEL 27 MEQ/L (21-32); CHLORIDE LEVEL 104 MEQ/L (98-107); CREATININE FOR GFR 0.99 MG/DL (0.55-1.30); GLOMERULAR FILTRATION RATE > 60.0 (>51); POTASSIUM SERUM 4.1 MEQ/L (3.5-5.1); SODIUM LEVEL 136 MEQ/L (136-145)
== END ==
LOC: M WUC 09:07
PROVIDERS: ATTEND Physician Assistant
DX: R50.9 Fever, unspecified (principal); N39.0 Urinary tract infection, site not specified

== ENCOUNTER → 2021-12-15 | Outpatient (CLI) | payer MEDICARE, MEDICAID | LOC: M WUC 08:37 | PROVIDERS: ATTEND Physician Assistant | DX: S76.001A Unspecified injury of muscle, fascia and tendon of right hip, initial encounter (principal); X58.XXXA Exposure to other specified factors, initial encounter; Y92.89 Other specified places as the place of occurrence of the external cause; Y93.89 Activity, other specified; Y99.8 Other external cause status ==

== ENCOUNTER → 2022-01-27 | Outpatient (REF) | payer MEDICARE, MEDICAID | LOC: M LAB REF 09:35 | PROVIDERS: ATTEND Physician Assistant | DX: R30.0 Dysuria (principal) ==

== ENCOUNTER → 2022-02-07 | Outpatient (CLI) | payer MEDICARE, MEDICAID | LOC: M RAD 13:05 | PROVIDERS: ATTEND Specialist | DX: N13.5 Crossing vessel and stricture of ureter without hydronephrosis (principal); N28.1 Cyst of kidney, acquired ==

== ENCOUNTER → 2022-03-06 | Outpatient (CLI) | payer MEDICARE, MEDICAID | LOC: M PLAIMG 15:00 | PROVIDERS: ATTEND Orthopaedic Surgery | DX: M70.61 Trochanteric bursitis, right hip (principal); M25.751 Osteophyte, right hip; M79.89 Other specified soft tissue disorders ==

== ENCOUNTER → 2022-03-30 | Outpatient (CLI) | payer MEDICARE, MEDICAID | LOC: M PLAIMG 10:15 | PROVIDERS: ATTEND Orthopaedic Surgery | DX: M70.61 Trochanteric bursitis, right hip (principal); M51.26 Other intervertebral disc displacement, lumbar region; M48.061 Spinal stenosis, lumbar region without neurogenic claudication ==

== ENCOUNTER → 2022-08-24 | Outpatient (CLI) | payer MEDICARE, MEDICAID | LOC: M RAD 06:36 | PROVIDERS: ATTEND Physician Assistant | DX: Z87.891 Personal history of nicotine dependence (principal); J44.9 Chronic obstructive pulmonary disease, unspecified ==

== ENCOUNTER → 2022-09-27 | Outpatient (CLI) | payer MEDICARE, MEDICAID | LOC: M RAD 10:29 | PROVIDERS: ATTEND Specialist | DX: N23 Unspecified renal colic (principal); R35.1 Nocturia; R39.198 Other difficulties with micturition; N28.1 Cyst of kidney, acquired; N13.30 Unspecified hydronephrosis ==

== ENCOUNTER → 2022-10-26 | Outpatient (CLI) | payer MEDICARE, MEDICAID ==
[2022-10-26 12:39] LABS: BLOOD UREA NITROGEN 20 MG/DL (9-23); CALCIUM LEVEL 9.6 MG/DL (8.5-10.1); CARBON DIOXIDE LEVEL 24 MMOL/L (20-31); CHLORIDE LEVEL 105 MMOL/L (98-107); CREATININE FOR GFR 1.02 MG/DL (0.55-1.30); GLOMERULAR FILTRATION RATE > 60.0 (>51); GLUCOSE, FASTING 104 MG/DL (60-100); POTASSIUM SERUM 4.5 MMOL/L (3.5-5.1); SODIUM LEVEL 137 MMOL/L (136-145)
== END ==
LOC: M LAB 10:20
PROVIDERS: ATTEND Specialist
DX: R35.1 Nocturia (principal); N23 Unspecified renal colic; N13.5 Crossing vessel and stricture of ureter without hydronephrosis

== ENCOUNTER → 2022-10-27 | Outpatient (CLI) | payer MEDICARE, MEDICAID ==
[~2022-10-27] MED LIST changes: +ISOVUE-370 76% 100ML VIAL As Ordered ONE
== END ==
LOC: M RAD 15:02
PROVIDERS: ATTEND Specialist
DX: N13.5 Crossing vessel and stricture of ureter without hydronephrosis (principal); N13.30 Unspecified hydronephrosis; J44.9 Chronic obstructive pulmonary disease, unspecified; K76.89 Other specified diseases of liver
CPT/HCPCS: 74178; Q9967

== ENCOUNTER → 2023-01-09 | Outpatient (REF) | payer MEDICARE, MEDICAID ==
[~2023-01-09] MED LIST changes: -ISOVUE-370 76% 100ML VIAL As Ordered ONE
== END ==
LOC: M LAB REF 09:21
PROVIDERS: ATTEND Physician Assistant
DX: K92.1 Melena (principal); R19.7 Diarrhea, unspecified

== ENCOUNTER → 2023-08-29 | Outpatient (CLI) | payer MEDICARE, MEDICAID ==
[~2023-08-29] MED LIST changes: -OXYB5TAB10 PO; +OXYB5TAB11 PO
== END ==
LOC: M RAD 07:47
PROVIDERS: ATTEND Physician Assistant
DX: Z12.2 Encounter for screening for malignant neoplasm of respiratory organs (principal); F17.218 Nicotine dependence, cigarettes, with other nicotine-induced disorders; J43.9 Emphysema, unspecified

== ENCOUNTER → 2023-12-06 | Outpatient (CLI) | payer MEDICARE, MEDICAID | LOC: M WUC 15:48 | PROVIDERS: ATTEND Student in an Organized Health Care Education/Training Program | DX: M25.562 Pain in left knee (principal); M25.462 Effusion, left knee ==

== ENCOUNTER → 2024-10-21 | Outpatient (CLI) | payer MEDICARE, MEDICAID ==
[~2024-10-21] MED LIST changes: -OXYB5TAB11 PO; +OXYB5TAB14 PO
== END ==
LOC: M RAD 12:33
PROVIDERS: ATTEND Physician Assistant
DX: Z12.2 Encounter for screening for malignant neoplasm of respiratory organs (principal); F17.218 Nicotine dependence, cigarettes, with other nicotine-induced disorders; J98.11 Atelectasis; I25.10 Atherosclerotic heart disease of native coronary artery without angina pectoris; J43.2 Centrilobular emphysema

== ENCOUNTER → 2024-12-04 | Outpatient (CLI) | payer MEDICARE, MEDICAID ==
[2024-12-04 07:16] LABS: BASO # 0.1 10^3/uL (0.0-0.2); BASO % 0.7 % (0.0-1.0); EOS # 0.4 10^3/uL (0.0-0.5); EOS % 3.2 % (0.0-3.0); HEMATOCRIT 47.2 % (36.0-47.0); LYMPH # 3.2 10^3/uL (1.5-5.0); LYMPH % 29.2 % (24.0-44.0); MEAN CORPUSCULAR HEMOGLOBIN 31.3 pg (27.0-33.0); MEAN CORPUSCULAR HGB CONC 33.9 g/dl (32.0-36.5); MEAN CORPUSCULAR VOLUME 92.2 fl (80.0-96.0); MONO # 0.6 10^3/uL (0.0-0.8); MONO % 5.2 % (2.0-8.0); NEUTROPHILS # 6.8 10^3/uL (1.5-8.5); NEUTROPHILS % 61.2 % (36.0-66.0); PLATELET COUNT, AUTOMATED 269 10^3/uL (150-450); RED BLOOD COUNT 5.12 10^6/uL (4.00-5.40); WHITE BLOOD COUNT 11.1 10^3/uL (4.0-10.0)
[2024-12-04 07:56] LABS: ALBUMIN 4.2 G/DL (3.2-5.2); ALKALINE PHOSPHATASE 102 U/L (35-104); ALT/SGPT 17 U/L (7.0-40); AST/SGOT 18 U/L (<34); BILIRUBIN,TOTAL 0.7 MG/DL (0.3-1.2); BLOOD UREA NITROGEN 15 MG/DL (9-23); CALCIUM LEVEL 9.9 MG/DL (8.5-10.1); CARBON DIOXIDE LEVEL 27 MMOL/L (20-31); CHLORIDE LEVEL 108 MMOL/L (98-107); CHOLESTEROL LEVEL 190 MG/DL (<200); CHOLESTEROL RISK RATIO 3.22 (<5); CREATININE FOR GFR 0.93 MG/DL (0.55-1.30); GLOMERULAR FILTRATION RATE > 60.0 (>51); GLUCOSE, FASTING 107 MG/DL (60-100); LDL CHOLESTEROL 113.8 MG/DL (<100); POTASSIUM SERUM 4.4 MMOL/L (3.5-5.1); SODIUM LEVEL 141 MMOL/L (136-145); THYROID STIMULATING HORMONE 4.395 uIU/ML (0.55-4.78); TOTAL PROTEIN 7.1 G/DL (5.7-8.2); TRIGLYCERIDES LEVEL 86 MG/DL (<150)
[2024-12-04 07:59] LABS: FREE T4 1.29 NG/DL (0.89-1.76)
[2024-12-04 08:00] LABS: TOTAL 25(OH) VITAMIN D 15.1 NG/ML (20.0-100.0)
[2024-12-04 08:29] LABS: HEMOGLOBIN A1c 5.5 % (4.0-6.0)
== END ==
LOC: M LAB 06:02
DX: D45 Polycythemia vera (principal); E78.5 Hyperlipidemia, unspecified; E55.9 Vitamin D deficiency, unspecified; N18.9 Chronic kidney disease, unspecified; Z79.899 Other long term (current) drug therapy

== ENCOUNTER → 2025-03-20 | Outpatient (CLI) | payer MEDICARE, MEDICAID ==
[2025-03-20 12:09] LABS: HEMATOCRIT 45.1 % (36.0-47.0); MEAN CORPUSCULAR HEMOGLOBIN 31.7 pg (27.0-33.0); MEAN CORPUSCULAR HGB CONC 33.3 g/dl (32.0-36.5); MEAN CORPUSCULAR VOLUME 95.3 fl (80.0-96.0); PLATELET COUNT, AUTOMATED 243 10^3/uL (150-450); RED BLOOD COUNT 4.73 10^6/uL (4.00-5.40); WHITE BLOOD COUNT 11.7 10^3/uL (4.0-10.0)
[2025-03-20 12:21] LABS: CALCIUM LEVEL 9.7 MG/DL (8.5-10.1); CREATININE FOR GFR 0.85 MG/DL (0.55-1.30); GLOMERULAR FILTRATION RATE 80.9 (>51); POTASSIUM SERUM 4.1 MMOL/L (3.5-5.1)
[2025-03-20 12:23] LABS: INR 0.9; PARTIAL THROMBOPLASTIN TIME 27.3 SECONDS (24.8-34.2); PROTHROMBIN TIME 12.5 SECONDS (12.5-14.5)
== END ==
LOC: M WUC 08:59
PROVIDERS: ATTEND Physician Assistant
DX: D69.8 Other specified hemorrhagic conditions (principal); Z01.818 Encounter for other preprocedural examination

== ENCOUNTER → 2025-05-26 | Outpatient (CLI) | payer MEDICARE, MEDICAID ==
[2025-05-26 07:52] LABS: CPK CREATINE PHOSPHOKINASE 103.0 U/L (34-145)
[2025-05-26 07:53] LABS: ALT/SGPT 21.0 U/L (7.0-40); AST/SGOT 24.0 U/L (<34); CHOLESTEROL LEVEL 167.0 MG/DL (<200); CHOLESTEROL RISK RATIO 2.89 (<5); LDL CHOLESTEROL 82.0 MG/DL (<100); NON-HDL-C 109.4 MG/DL; TRIGLYCERIDES LEVEL 137.0 MG/DL (<150)
== END ==
LOC: M LAB 06:12
PROVIDERS: ATTEND Internal Medicine Cardiovascular Disease
DX: E78.2 Mixed hyperlipidemia (principal)

== ENCOUNTER → 2025-06-16 | Outpatient (CLI) | payer MEDICARE, MEDICAID ==
[2025-06-16 06:58] LABS: BASO # 0.1 10^3/uL (0.0-0.2); BASO % 0.5 % (0.0-1.0); EOS # 0.4 10^3/uL (0.0-0.5); EOS % 3.4 % (0.0-3.0); LYMPH # 3.0 10^3/uL (1.5-5.0); LYMPH % 25.0 % (24.0-44.0); MONO # 0.7 10^3/uL (0.0-0.8); MONO % 5.5 % (2.0-8.0); NEUTROPHILS # 7.8 10^3/uL (1.5-8.5); NEUTROPHILS % 65.2 % (36.0-66.0); PLATELET COUNT, AUTOMATED 212 10^3/uL (150-450)
[2025-06-16 07:18] LABS: CALCIUM LEVEL 9.0 MG/DL (8.5-10.1); CARBON DIOXIDE LEVEL 27.0 MMOL/L (20-31); CHLORIDE LEVEL 106.0 MMOL/L (98-107); CREATININE FOR GFR 0.94 MG/DL (0.55-1.30); GLOMERULAR FILTRATION RATE 71.2 (>51); POTASSIUM SERUM 4.5 MMOL/L (3.5-5.1); SODIUM LEVEL 141.0 MMOL/L (136-145)
== END ==
LOC: M LAB 06:14
PROVIDERS: ATTEND Internal Medicine Cardiovascular Disease
DX: I25.10 Atherosclerotic heart disease of native coronary artery without angina pectoris (principal); R06.02 Shortness of breath; R94.39 Abnormal result of other cardiovascular function study